=== PATIENT | female | born 1955 | race Caucasian/White ===

== ENCOUNTER → 2017-07-05 | Outpatient (CLI) | payer OTHER ==
[~2017-07-05] MED LIST: ARIP5TAB7 PO; FAMO40TA38; LEVO50TA74; MELO-210 PO; METF500T4 PO; OMEP20CA9 PO; OXYC-281; SERT-165; SUCR1TAB; TRAZ150T65 PO; TUMS EX750 MG; [UNRECOGNIZED DRUG - CODE] PO
== END | disposition home or self-care (01) ==
LOC: EEG 09:34
PROVIDERS: ATTEND Psychiatry & Neurology Neurology
DX: G40.909 Epilepsy, unspecified, not intractable, without status epilepticus (principal)
CPT/HCPCS: 95819

== ENCOUNTER 2018-03-31 15:34 | Inpatient (IN) | END 2018-04-02 17:10 | disposition home or self-care (01) | DRG 872 ==

== ENCOUNTER 2018-07-02 05:59 | Day surgery (SDC) | END 2018-07-02 14:53 | disposition home or self-care (01) ==

== ENCOUNTER 2018-09-29 06:19 | Emergency (ER) | payer OTHER ==
[~2018-09-29] VITALS: Ht 157.5 cm; Wt 67.8 kg
[~2018-09-29 06:19] MED LIST changes: -ARIP5TAB7 PO; +ASPI-716 PO; -FAMO40TA38; +FISH1CAP PO; +GABA-526 PO; +LEVO50TA7; -LEVO50TA74; -MELO-210 PO; +MELO15TA30 PO; -METF500T4 PO; +MULT-130 PO; -OMEP20CA9 PO; -OXYC-281; +RANI300T PO; +RISP1TAB3 PO; -SERT-165; +SERT-165 PO; +SITA25TA3 PO; -SUCR1TAB; +TOPI100C6 PO; +ZOC10 PO
[2018-09-29 06:26] VITALS: Ht 157.5 cm; Wt 67.8 kg
--- NOTE | 2018-09-29 07:44 | ERD ---
ER Documentation Chief Complaint Chief Complaint pelvic pressure radiating to back x2 days HPI Very pleasant 63-year-old female presents to the emergency room at 24-48 hours of suprapubic abdominal discomfort and mild lower back discomfort. She states that she had pain all night that was burning and pressure-like. She states nasra lar symptoms in the past when she had a urinary tract infection. She does describe urinary urgency and frequency. She denies any fevers or chills, no unilateral flank pain. No colicky pain. No vaginal bleeding or discharge. ROS All systems reviewed and are negative except as per history of present illness. Medications Home Meds Active Scripts Cephalexin* (Keflex*) 500 Mg Capsule, 500 MG PO BID for 7 Days, CAP Prov:KYLEIGH PEDRAZA MD 09/29/18 Ibuprofen* (Motrin*) 800 Mg Tab, 800 MG PO Q6H PRN for PAIN AND OR ELEVATED TEMP, #30 TAB Prov:KYLEIGH PEDRAZA MD 09/29/18 Reported Medications Fish Oil/Dha/Epa (FISH OIL 1,200 MG FISH OIL) 1 Each Capsule, 1 EACH PO DAILY, CAP 03/31/18 Multivitamins-Min/Fa/Ginkgo (ONE DAILY FOR WOMEN 50+ ADV TB) 1 Each Tablet, 1 EACH PO DAILY, TAB 03/31/18 Aspirin* (Ecotrin*) 81 Mg Tablet.dr, 81 MG PO DAILY, TAB 03/31/18 Risperidone* (Risperidone*) 1 Mg Tablet, 1 MG PO bedtime, TAB 03/31/18 Gabapentin* (Gabapentin*) 600 Mg Tablet, 1200 MG PO TID, #180 TAB 03/31/18 Simvastatin (Simvastatin) 10 Mg Tablet, 10 MG PO weekly, #30 TAB 03/31/18 Ranitidine Hcl* (Ranitidine Hcl*) 300 Mg Tablet, 300 MG PO HS, #30 TAB 03/31/18 Topiramate* (Trokendi XR*) 100 Mg Cap.er.24h, 100 MG PO Bedtime, CAP 03/31/18 Sitagliptin* (Januvia*) 25 Mg Tablet, 25 MG PO BID, #30 TAB 03/31/18 Calcium Carbonate (Tums Ex) 750 Mg Chew 04/15/12 Sertraline Hcl* (Sertraline Hcl*) 100 Mg Tablet, 100 MG PO AC BREAKFAST 04/15/12 Levothyroxine Sodium* (Levothyroxine Sodium*) 50 Mcg Tablet 04/15/12 Trazodone Hcl* (Desyrel*) 150 Mg Tablet, 150 MG PO DAILY 04/13/12 Meloxicam* (Mobic*) 15 Mg Tablet, 15 MG PO DAILY 04/13/12 Captopril (Capoten) 12.5 Mg Tablet, 12.5 MG PO DAILY 04/13/12 Allergies Allergies: Coded Allergies: No Known Drug Allergies (Verified Allergy, Unknown, 03/31/18) PMhx/Soc History of Surgery: Yes (HYSTERECTOMY) Anesthesia Reaction: No Hx Neurological Disorder: No Hx Respiratory Disorders: No Hx Cardiac Disorders: Yes (HYPERTENSION) Hx Psychiatric Problems: No Hx Miscellaneous Medical Probl: Yes (HYPERLIPIDEMIA) Hx Alcohol Use: No Hx Substance Use: No Hx Tobacco Use: No FmHx Family History: No diabetes Physical Exam Vitals Vital Signs Date Temp Pulse Resp B/P (MAP) Pulse Ox O2 O2 Flow FiO2 Time Delivery Rate 09/29/18 97.1 89 18 173/92 99 06:26 (119) Physical Exam General: Well developed, well nourished, no acute distress Head: Normocephalic, atraumatic. Eyes: Pupils equally reactive, EOM intact ENT: Moist mucous membranes Neck: Supple, no lymphadenopathy Respiratory: Lungs clear bilaterally, no distress Cardiovascular: RRR, no murmurs, rubs, or gallops Abdominal: Soft, very mild suprapubic abdominal tenderness overlying the bladder, negative Mendez sign, no tenderness to McBurney's point, negative Rovsing's. Back: No CVAT bilaterally : Deferred MSK: No edema, no unilateral swelling, 5/5 strength Neurologic: Alert and oriented, moving all extremities, normal speech, no focal weakness, no cerebellar signs Skin: No rash Psych: Normal mood Result Diagram: 09/29/18 0805 09/29/18 0805 Results 24 hrs Laboratory Tests Test 09/29/18 07:47 09/29/18 08:05 Bedside Urine pH (LAB) 7.0 Bedside Urine Protein (LAB) Negative Bedside Urine Glucose (UA) Negative Bedside Urine Ketones (LAB) Negative Bedside Urine Blood Negative Bedside Urine Nitrite (LAB) Negative Bedside Urine Leukocyte Esterase (L Negative White Blood Count 6.9 10^3/ul Red Blood Count 4.97 10^6/ul Hemoglobin 12.1 g/dl Hematocrit 38.7 % Mean Corpuscular Volume 77.9 fl Mean Corpuscular Hemoglobin 24.3 pg Mean Corpuscular Hemoglobin Concent 31.3 g/dl Red Cell Distribution Width 15.9 % Platelet Count 180 10^3/UL Mean Platelet Volume 10.4 fl Immature Granulocytes % 0.400 % Neutrophils % 70.9 % Lymphocytes % 20.8 % Monocytes % 6.3 % Eosinophils % 0.9 % Basophils % 0.7 % Nucleated Red Blood Cells % 0.0 /100WBC Immature Granulocytes # 0.030 10^3/ul Neutrophils # 4.9 10^3/ul Lymphocytes # 1.4 10^3/ul Monocytes # 0.4 10^3/ul Eosinophils # 0.1 10^3/ul Basophils # 0.1 10^3/ul Nucleated Red Blood Cells # 0.0 10^3/ul Sodium Level 142 mmol/L Potassium Level 4.3 mmol/L Chloride Level 110 mmol/L Carbon Dioxide Level 24 mmol/L Anion Gap 8 Blood Urea Nitrogen 14 mg/dl Creatinine 0.57 mg/dl Est Glomerular Filtrat Rate mL/min > 60 mL/min Glucose Level 128 mg/dl Calcium Level 9.3 mg/dl Total Bilirubin 0.1 mg/dl Direct Bilirubin 0.00 mg/dl Indirect Bilirubin 0.1 mg/dl Aspartate Amino Transf (AST/SGOT) 42 IU/L Alanine Aminotransferase (ALT/SGPT) 32 IU/L Alkaline Phosphatase 88 IU/L Total Protein 7.5 g/dl Albumin 4.0 g/dl Globulin 3.50 g/dl Albumin/Globulin Ratio 1.14 Lipase 144 U/L Current Medications Medications Dose Sig/Tesfaye Start Time Status Last (Trade) Ordered Route PRN Stop Time Admin Dose Reason Admin Ibuprofen 800 mg ONCE ONCE 09/29/18 DC 09/29/18 (Motrin) PO 08:00 09/29/18 07:47 08:01 Procedures/MDM CT a/p IMPRESSION: No evidence of urolithiasis, obstructive uropathy, diverticulitis or append icitis. Diverticulosis. Hysterectomy. Enlarged fatty liver. Question of thick-walled stomach. Clinical correlation suggested. Consider endoscopy if clinically indicated. L5-S1 degenerative disc disease with central stenosis. LAB INTERPRETATION: I reviewed the laboratory testing and it shows urine dip that is unremarkable. Laboratory testing reveals no evidence of infection or hepatobiliary obstruction MEDICAL DECISION MAKING: Patient's clinical exam, signs and symptoms are very consistent with uncomplicated acute cystitis. No clinical signs or symptoms concerning for acute pyelonephritis. Very low clinical concern for acute intra-abdominal process such as appendicitis, bowel obstruction, diverticulitis or ovarian or uterine process. The patient has focal tenderness overlying the bladder with signs symptoms consistent with UTI and prior history of UTI. Urine dip would be appropriate. If the urinalysis is unremarkable then further workup including labs and CT may be necessary. Otherwise I would like to avoid unnecessary diagnostic imaging and radiation. ER COURSE: * Urine dip was not consistent with urinary tract infection. CT imaging and laboratory testing was initiated given unclear etiology at this point. * Laboratory testing and CT imaging are unrevealing. At this point unclear etiology as to the patient's symptoms. The patient does have a history of cystitis with similar symptoms. This is the most likely examination. A short trial of Keflex would be reasonable. The patient was advised if symptoms do not improve outpatient follow-up with [facility] and urology for possible cystoscopy would be appropriate. Return precautions were discussed and understood and the patient feels comfortable with discharge. CONSULTATION: None DISPOSITION PLAN: The patient does not have an identifiable emergent medical condition that warrants inpatient hospitalization at this time. The patient is deemed safe for discharge with outpatient follow-up. We discussed follow up with the patient's primary care doctor within 24 to 48 hours as needed. We also discussed return to the emergency room for worsening symptoms or worsening condition. Outpatient referral: [facility] and urology as needed Discharge Medications: Motrin and Keflex Departure Diagnosis: Primary Impression: Suprapubic abdominal pain Additional Impression: Acute cystitis Hematuria presence: without hematuria Qualified Codes: N30.00 - Acute cystitis without hematuria Condition: KYLEIGH Kaye MD Sep 29, 2018 07:44
[2018-09-29] MEDS ORDERED: IBUPROFEN 800 MG TAB PO ONE (08:00)
[2018-09-29] MEDS ORDERED: CEPH-443 PO (08:56)
[2018-09-29] MEDS ORDERED: IBUP800T48 PO (08:56)
[2018-09-29 09:31] VITALS: BP 119/85; PULSE 88; RESP 18
== END 2018-09-29 09:34 | disposition home or self-care (01) ==
LOC: E/R 06:19
DX: N30.00 Acute cystitis without hematuria (principal); I10 Essential (primary) hypertension; Z79.82 Long term (current) use of aspirin; Z79.84 Long term (current) use of oral hypoglycemic drugs
CPT/HCPCS: 74176; 80053; 81003; 83690; 85025; Z7502; Z7610

== ENCOUNTER 2019-01-21 05:41 | Inpatient (IN) | payer OTHER ==
[2019-01-21] VITALS (29 sets, daily range): BP systolic 103–160; BP diastolic 53–86; PULSE 17–88; RESP 10–18; Ht 157.5 cm; Wt 65.2 kg
[~2019-01-21] VITALS: Ht 157.5 cm; Wt 65.2 kg
[~2019-01-21 05:41] MED LIST changes: +CEPH-443 PO; +IBUP800T48 PO
[2019-01-21] MEDS ORDERED: OMEP40CA6 PO (06:58)
[2019-01-21] MEDS ORDERED: TRA100 PO (07:00)
[2019-01-21] MEDS ORDERED: GELATIN SIZE 100 SPONGE ONE (07:04)
[2019-01-21] MEDS ORDERED: THROMBIN (BOVINE) 5,000 UNIT VIAL TP ONE (07:05)
[2019-01-21] MEDS ORDERED: BUPIVACAINE 0.5% (SDV) 30 ML INJ ONE (07:05)
[2019-01-21] MEDS ORDERED: POLYMYXIN/BACITRACIN 1L IRRIG ONE (07:05)
[2019-01-21] MEDS ORDERED: LIDOCAINE 1%/EPI 30 ML INJ ONE (07:05)
--- NOTE | 2019-01-21 07:07 | PREAC ---
Date/Time of Note Date/Time of Note DATE: 01/21/19 TIME: 07:06 Anesthesia Eval and Record Evaluation Time Pre-Procedure Interview DATE: 01/21/19 TIME: 07:06 Age 63 Sex female NPO: 8 hrs Preoperative diagnosis C4-5, C5-6, C6-7 disc degenerative disease Planned procedure C4-5, C5-6, C6-7 anterior cervical discectomy and decompression, C4-7 instrumented fusion with graft Past Medical History Past Medical History: Includes Cardio: HTN, Dyslipidemia Endo: Diabetes, Hypothyroid Surgery & Anesthesia Issues No known issue Meds Anticoagulation: No Beta Allison within 24 hr: No Reason Beta Allison not given: Pt. not on B-Allison Reported Medications Trazodone Hcl* (Trazodone Hcl*) 100 Mg Tablet, 200 MG PO QHS, #30 TAB 01/21/19 Omeprazole* (Omeprazole*) 40 Mg Capsule.dr, 40 MG PO DAILY, #30 CAP 01/21/19 Fish Oil/Dha/Epa (FISH OIL 1,200 MG FISH OIL) 1 Each Capsule, 1 EACH PO DAILY, CAP 03/31/18 Multivitamins-Min/Fa/Ginkgo (ONE DAILY FOR WOMEN 50+ ADV TB) 1 Each Tablet, 1 EACH PO DAILY, TAB 03/31/18 Aspirin* (Ecotrin*) 81 Mg Tablet.dr, 81 MG PO DAILY, TAB 03/31/18 Risperidone* (Risperidone*) 1 Mg Tablet, 1 MG PO bedtime, TAB 03/31/18 Gabapentin* (Gabapentin*) 600 Mg Tablet, 1200 MG PO TID, #180 TAB 03/31/18 Simvastatin (Simvastatin) 10 Mg Tablet, 10 MG PO weekly, #30 TAB 03/31/18 Ranitidine Hcl* (Ranitidine Hcl*) 300 Mg Tablet, 300 MG PO HS, #30 TAB 03/31/18 Topiramate* (Trokendi XR*) 100 Mg Cap.er.24h, 100 MG PO Bedtime, CAP 03/31/18 Sitagliptin* (Januvia*) 25 Mg Tablet, 25 MG PO BID, #30 TAB 03/31/18 Sertraline Hcl* (Sertraline Hcl*) 100 Mg Tablet, 100 MG PO AC BREAKFAST 04/15/12 Levothyroxine Sodium* (Levothyroxine Sodium*) 50 Mcg Tablet 04/15/12 Captopril (Capoten) 12.5 Mg Tablet, 12.5 MG PO DAILY 04/13/12 Discontinued Reported Medications Calcium Carbonate (Tums Ex) 750 Mg Chew 04/15/12 Trazodone Hcl* (Desyrel*) 150 Mg Tablet, 150 MG PO DAILY 04/13/12 Meloxicam* (Mobic*) 15 Mg Tablet, 15 MG PO DAILY 04/13/12 Discontinued Scripts Cephalexin* (Keflex*) 500 Mg Capsule, 500 MG PO BID for 7 Days, CAP Prov:KYLEIGH PEDRAZA MD 09/29/18 Ibuprofen* (Motrin*) 800 Mg Tab, 800 MG PO Q6H PRN for PAIN AND OR ELEVATED TEMP, #30 TAB Prov:KYLEIGH PEDRAZA MD 09/29/18 Meds reviewed: Yes Allergies Coded Allergies: No Known Drug Allergies (Verified Allergy, Unknown, 01/21/19) Allergies Reviewed: Yes Labs/Studies Labs Reviewed: Reviewed by anesthesiologist test: N/A Pre-procedure Exam Airway: Adequate mouth opening Mallampati: Mallampati I Teeth: Abnormal (Partial upper denture, full lower denture) Lung: Normal Heart: Normal ASA Physical Status ASA physical status: 3 Emergency: None Planned Pain Management Parenteral pain med Pre-operative Attestations Prior to commencing anesthesia and surgery, the patient was re-evaluated, there was verification of: *The patient's identity *The results of appropriate recent lab work and preoperative vital signs *The above evaluation not changing prior to induction *Anesthetic plan, risk benefits, alternative and complications discussed with patient/family; questions answered; patient/family understands, accepts and wishes to proceed. NADEEM VILLALTA MD Jan 21, 2019 07:07
[2019-01-21] MEDS ORDERED: ROCURONIUM 50 MG INJ ONE (07:30)
[2019-01-21] MEDS ORDERED: MEPERIDINE 100 MG INJ ONE (07:30)
[2019-01-21] MEDS ORDERED: NEOSTIGMINE 3 MG/3 ML SYRINGE ONE (07:30)
[2019-01-21] MEDS ORDERED: LIDOCAINE 2% (SDV) 5 ML INJ ONE (07:30)
[2019-01-21] MEDS ORDERED: PROPOFOL 20 ML ONE (07:30)
[2019-01-21] MEDS ORDERED: SUCCINYLCHOLINE CHLORIDE 100 MG/5 ML SYG IV ONE (07:30)
[2019-01-21] MEDS ORDERED: GLYCOPYRROLATE 0.4 MG INJ ONE ×2 (07:30→13:04)
[2019-01-21] MEDS ORDERED: SOD CHLORIDE 0.9% 1,000 ML IV SCH (07:30)
[2019-01-21] MEDS ORDERED: SEVOFLURANE 15 MIN ONE (07:50)
--- NOTE | 2019-01-21 07:54 | HPN ---
Date/Time of Note Date/Time of Note DATE: 01/21/19 TIME: 07:52 Interval H&P Admission Note Pt. seen H&P reviewed: Systems changes noted below Patient continues to have intractable axial neck pain with B. UE (Right>Left) pain, numbness, weakness. DIscussed the patient's pathology with family at bedside including patient's son and her sisters. Risks and benefits of surgery explained to patient and family again. They understand and wish to proceed. PHILIP SIBLEY MD Jan 21, 2019 07:54
[2019-01-21] MEDS ORDERED: CEFAZOLIN 1 GM INJ ONE (08:26)
[2019-01-21] MEDS ORDERED: DEXAMETHASONE 4 MG/ML 5 ML INJ ONE (08:26)
[2019-01-21] MEDS ORDERED: DIPHENHYDRAMINE 50 MG INJ IV PRN (13:00)
[2019-01-21] MEDS ORDERED: LABETALOL HCL 20MG INJ IV PRN (13:00)
[2019-01-21] MEDS ORDERED: EPHEDrine 25 MG/5 ML SYG IV PRN (13:00)
[2019-01-21] MEDS ORDERED: FENTAnyl 50 MCG/ML VIAL IV PRN ×2 (13:00)
[2019-01-21] MEDS ORDERED: METOCLOPRAMIDE 10 MG INJ IV PRN (13:00)
[2019-01-21] MEDS ORDERED: ONDANSETRON 4 MG INJ IV PRN ×2 (13:00→13:30)
[2019-01-21] MEDS ORDERED: hydrALAzine 20 MG INJ IV PRN (13:00)
[2019-01-21] MEDS ORDERED: MEPERIDINE 25 MG INJ IV PRN (13:00)
[2019-01-21] MEDS ORDERED: MIDAZOLAM 1 MG/ML 2 ML INJ IV PRN (13:00)
[2019-01-21] MEDS ORDERED: HYDROmorphONE 1 MG/5 ML IV SYRINGE IV PRN ×3 (13:00)
[2019-01-21] MEDS ORDERED: OXYCODONE/ACETAMINOPHEN (5/325) TAB PO PRN ×2 (13:00)
[2019-01-21] MEDS ORDERED: ONDANSETRON 4 MG INJ ONE (13:06)
[2019-01-21] MEDS ORDERED: NON-FORMULARY/PATIENT OWN MED (Omeprazole* 40 MG) PO SCH (13:30)
[2019-01-21] MEDS ORDERED: TOPIRAMATE 100 MG PO SCH (13:30)
[2019-01-21] MEDS ORDERED: LEVOTHYROXINE 50 MCG TAB PO SCH (13:30)
[2019-01-21] MEDS ORDERED: NON-FORMULARY/PATIENT OWN MED (Simvastatin 10 MG) PO SCH (13:30)
[2019-01-21] MEDS ORDERED: BISACODYL 10 MG SUPP PR PRN (13:30)
[2019-01-21] MEDS ORDERED: NALOXONE (0.4 MG/ML) INJ IV PRN (13:30)
[2019-01-21] MEDS: CEFAZOLIN 1 GM/50 ML (PMX) 50 ML IVPB SCH ×2 (14:14→20:49)
--- NOTE | 2019-01-21 14:34 | OPR ---
Date/Time of Note Date/Time of Note DATE: 01/21/19 TIME: 14:33 Operative Report Procedure Date: Jan 21, 2019 Preoperative Diagnosis Please see below. Postoperative Diagnosis Please see below. Operation/Procedure Performed Please see below. Surgeon see signature line Manager Client Service None Anesthesia Type: general Estimated Blood Loss: 10 - 50 ml's (50cc) Transfusion none Specimen None Grafts/Implants Please see below. Tubes/Drains Please see below. Complications none Pt Condition Post Procedure: stable Disposition: PACU Procedure Description Date of operation: 01/21/2019 Preoperative diagnosis: 1. C4-5, C5-6 and C6-7 degenerative disc disease 2. C4-5, C5-6 and C6-7 central and foraminal stenosis Post Operative diagnosis: 1. C4-5, C5-6 and C6-7 degenerative disc disease 2. C4-5, C5-6 and C6-7 central and foraminal stenosis Procedures performed: 1. C4-5, C5-6 and C6-7 anterior cervical discectomy and spinal decompression 2. Placement of intervertebral cages at C4-5, C5-6 and C6-7 levels (Nexxt Spine 3D printed titanium lordotic 7 mm height cages) 3. C4-C7 anterior interbody arthrodesis 4. C4-C7 anterior instrumentation (Ceci Spine static plate with 14 mm variable screws) 5. Local morselized autologous bone graft harvest 6. Morselized allograft placement (demineralized bone matrix allograft putty) 7. Intraoperative fluoroscopy with professional interpretation 8. Intraoperative microscope with microdissection 9. Intraoperative neurophysiologic monitoring including SSEP, MEP and EMG Indication for procedure: This is a 63-year-old right-handed female with chronic history of progressively increasing severe and intractable axial neck pain, rigidity and spasms as well as bilateral upper extremity including hand numbness, weakness and some early signs of cervical myelopathy including decreased dexterity and gait balance. The patient has already undergone conservative management without significant improvement of her symptomatology. She was found to have the above image findings. The patient's pathology was explained in great detail with the patient and her daughter in the clinic setting as well as with the patient again in the rest of her family including her son and the preoperative area in detail. The risks and benefits of the above operation were explained in great detail with the risks including bleeding, infection, weakness, numbness, paralysis, bowel or bladder dysfunction, injury to the surrounding tissues, dysphagia, hoarseness of voice, cerebrospinal fluid leak, failure of improvement of symptoms or worsening of symptoms, need for further surgeries including redo/revision or extension of the decompression and instrumented fusion as well as those risks associated with surgery and general anesthesia including heart attack, stroke, pneumonia, deep venous thrombosis, pulmonary embolism and . The patient and her family fully understood the above discussion and wished to proceed with the above surgery. Description of operative procedure: The patient was brought to the operating room and placed supine on the operating table. After general anesthesia was obtained, a small roll was placed across the patient's shoulders. Her neck was kept in a neutral position. Her arms were then tucked by her side. All pressure points were noted and padded appropriately. Her shoulders were then taped down. The midline anterior cervical region was marked. Then the vertical linear incision was marked from the medial border of the sternocleidomastoid muscle toward midline at the level of the cricoid cartilage. After the skin was prepped and draped under standard sterile fashion, local anesthetics were infiltrated into the marked incision. The skin was then incised down to the level of the platysma muscle. The platysma muscle was then sharply opened and the plane underneath the platysma muscle was dissected free superiorly and inferiorly to further loosen the soft tissue and increase the operative coridor. The plane medial to the right sternocleidomastoid muscle was then further dissected all the way down to the precervical fascia. The C4-5 disc space was then localized and confirmed under direct lateral fluoroscopy. The medial borders of the sternocleidomastoid muscle were undermined. Self-retaining retractors were placed inside. Florence pins were placed at the C4 and C5 vertebral bodies. The patient had severe C4-5, C5-6 and C6-7 degenerative disc disease and disc collapse as seen on the intraoperative fluoroscopy. The operating microscope was brought into the field. The C4-5 disc space was then distracted using the Florence pins. The annulus was then cut open. Then using a combination of Kerrisons and rongeurs and a high-speed drill, complete discectomy was done all the way to the posterior longitudinal ligament. The posterior disc osteophyte complexes were completely removed. The posterior longitudinal ligament was removed. The osteophytes that were removed were leticia vested for later morselized autologous grafting. The dura was exposed. The central canal and bilateral neuroforamina that were stenotic were completely decompressed. The decompression was carried out laterally to the level of the uncovertebral joints bilaterally and the proximal exiting C5 nerve roots were fully exposed. Using the Microsect curettes, any remaining soft tissue u nderneath the C4 and C5 vertebral bodies was also removed fully decompressing the central canal as well as the neuroforamina. The endplates were fully decorticated. Complete hemostasis was obtained. Then the intervertebral cage trials of various sizes were inserted. We finally decided to use the 7 mm height intervertebral cage. The cage was then packed with a combination of the locally harvested morselized autologous bone graft together with demineralized bone matrix allograft putty. The cage was then inserted under direct lateral fluoroscopy and countersunk. This allowed us to achieve excellent disc height mormonism. The C4 Florence pin was removed. The same set of procedures were then done in order to reach the C5-6 and subsequently the C6-7 levels using the same steps as a C4-5 level. The amount of degenerative changes was most severe at the C5-6 level. The amount of central canal stenosis was most severe at the C5-6 level with significant cord compression greater on the left than the right at this level. By the end of the decompression, the spinal cord and the neuroforamina with the exiting C6 and C7 nerve roots were fully decompressed. The dura was completely pulsatile by the end of the procedure. Was an area of thinning of the dura at the C5-6 level but the arachnoid was not showing. Once complete hemostasis was obtained, a small amount of DuraSeal was placed over the dura. After using the various cage trials, we also inserted 7 mm height intervertebral cages at the C5-6 and C6-7 levels direct lateral fluoroscopy and countersunk them. We finally selected the appropriate size anterior cervical plate and vented lordotic to allow mormonism of the patient's cervical lordosis. Starting pump servicer holes were then made into the vertebral bodies from C4 down to C7 and 14 mm variable screws were inserted and fully tightened starting from C4 down to C7 to allow anterior cervical plate screws to lag and bring the vertebral bodies into the plate. The screws were then fully tightened and the locking mechanisms were engaged. A final AP and lateral x-ray was taken showing good positioning of the hardware and good mormonism of the patient's cervical lordosis. Complete hemostasis was obtained. Size 10 flat drain was placed in the pretracheal space and the other end of it was brought out of the skin away from the incision site. The platysmal layer was then reapproximated with int errupted sutures. The dermal layer was reapproximated with interrupted sutures. The skin was reapproximated with Dermabond. The drain was secured at its exit site to the skin with a suture and connected to a KENYON bulb and activated. A sterile dressing was placed on top of the incision site. The patient was then woken up, extubated and transported to the recovery room in stable condition. The patient was awake and alert in the recovery room and moving her upper and lower extremities proximally and distally with good strength and following commands. Estimated blood loss: 50 cc Blood products administered: None Type of anesthesia: General Specimen removed: None Packs/drains: Size 10 flat drain Incision: Right anterior cervical Skin closure: Dermabond Patient's condition: Stable Prognosis: Good Wound classification: PHILIP Murguia MD Jan 21, 2019 14:34
[2019-01-21] MEDS: FENTAnyl 50 MCG/ML VIAL IV PRN ×2 (15:24→15:39)
--- NOTE | 2019-01-21 15:34 | HP ---
Date/Time of Note Date/Time of Note DATE: 01/21/19 TIME: 15:26 Assessment/Plan VTE Prophylaxis SCD applied (from Nsg): Yes Pharmacological prophylaxis: NA/contraindicated Pharm contraindication: surgical contra Lines/Catheters IV Catheter Type (from Nrsg): Peripheral IV Urinary Cath still in place: Yes Reason Cath still needed: other (indicate) Assessment/Plan Hospital Course SUBJECTIVE: Lying in bed, having pain on surgical site. OBJECTIVE: Vital signs-see below PHYSICAL EXAM: Constitutional: Adequately built,not in acute distress. HEENT: Head atraumatic and normocephalic. Eyes: Extraocular muscles intact. Anicteric sclerae. Pupils equal bilaterally, reactive to light. NECK: Surgical site dressing C/B/I. KENYON oozing blood. CHEST: Clear and good breath sounds equally. No wheezing. No rhonchi. HEART: S1, S2. Regular rate and rhythm. ABDOMEN: Soft/non tender with no rebound tenderness. Bowel sounds were present. EXTREMITIES: No cyanosis, clubbing or edema. NEUROLOGIC: Alert and oriented x3. No focal deficit. No sensory deficit. PSYCHOSOCIAL: No signs of depression. INTEGUMENTARY: No open wounds. ASSESSMENT AND PLAN: 63-year-old female with a history of type 2 diabetes, hypertension, neuropathy, anxiety disorders, GERD, hypothyroidism, dyslipidemia, cervical myelopathy who was brought in for neurosurgical intervention for severe degenerative disc disease with foraminal stenosis who failed conservative medical management. Multilevel cervical degenerative disc disease w/stenosis -s/p C4-5, C5-6 and C6-7 anterior cervical discectomy and spinal decompression 01/21/19 -Postop management per neurosurgery. DMII -A1C -Basal/bolus insulin HTN -resume home meds Dyslipidemia -Resume statin Anxiety/sleep disorders -resume home meds Hypothyroidism -resume synthroid DVT prophylaxis: SCDs only. Disposition: As per discussion with neurosurgery, plan is to observe patient overnight and with likely drain removal in AM and DC with outpatient follow-up. Approximately 60-minute was spent on this history and physical. Patient was seen in collaboration with Dr. Palma. Results 24hrs Laboratory Tests Test 01/21/19 06:57 01/21/19 14:21 Bedside Glucose 123 166 HPI/ROS Admit Date/Time Admit Date/Time Jan 21, 2019 at 05:41 Hx of Present Illness 63-year-old female with a history of type 2 diabetes, hypertension, neuropathy, anxiety disorders, GERD, hypothyroidism, dyslipidemia, cervical myelopathy who was brought in for neurosurgical intervention for severe cervical degenerative disc disease with foraminal stenosis who failed conservative medical management. Patient underwent C4-5, C5-6 and C6-7 anterior cervical discectomy and spinal decompression on 01/21/[address] Shaw. Hospitalist consultation was requested postoperatively for co-medical management. Patient was seen in the recovery room. She is awake. Reports pain on surgical site. KENYON draining mild to moderate amount of blood. She denied numbness, t ingling, chest pain, palpitation, shortness of breath, nausea, vomiting, abdominal pain, dizziness, headache, or other constitutional symptoms. Vital signs stable. ROS A 12 point review of system was assessed and is negative other than what is mentioned in HPI PMH/Family/Social Past Medical History See HPI Medications Current Medications Sodium Chloride 1,000 ml @ 0 mls/hr Q0M IV Last administered on 01/21/19at 07:35; Admin Dose 25 MLS/HR; Start 01/21/19 at 07:30 Hydromorphone HCl (Dilaudid) 0.2 mg PACU PRN IV MILD PAIN 1-3; Start 01/21/19 at 13:00; Stop 01/21/19 at 17:00 Hydromorphone HCl (Dilaudid) 0.4 mg PACU PRN IV MOD PAIN 4-6 Last administered on 01/21/19at 14:58; Admin Dose 0.4 MG; Start 01/21/19 at 13:00; Stop 01/21/19 at 17:00 Hydromorphone HCl (Dilaudid) 0.6 mg PACU PRN IV SEVERE PAIN 7-10 Last administered on 01/21/19at 14:14; Admin Dose 0.6 MG; Start 01/21/19 at 13:00; Stop 01/21/19 at 17:00 Fentanyl (Sublimaze) 25 mcg PACU ORDER PRN IV MILD PAIN 1-3; Start 01/21/19 at 13:00; Stop 01/21/19 at 17:00 Fentanyl (Sublimaze) 50 mcg PACU ORDER PRN IV MOD PAIN 4-6; Start 01/21/19 at 13:00; Stop 01/21/19 at 17:00 Fentanyl (Sublimaze) 75 mcg PACU ORDER PRN IV SEVERE PAIN 7-10; Start 01/21/19 at 13:00; Stop 01/21/19 at 17:00 Oxycodone/ Acetaminophen (Percocet (5/ 325)) 1 tab PACU ORDER PRN PO .PAIN 1-5; Start 01/21/19 at 13:00; Stop 01/21/19 at 17:00 Oxycodone/ Acetaminophen (Percocet (5/ 325)) 2 tab PACU ORDER PRN PO .PAIN 6-10; Start 01/21/19 at 13:00; Stop 01/21/19 at 17:00 Ondansetron HCl (Zofran Inj) 4 mg PACU ORDER PRN IV NAUSEA/VOMITING; Start 01/21/19 at 13:00; Stop 01/21/19 at 17:00 Metoclopramide HCl (Reglan) 10 mg PACU ORDER PRN IV NAUSEA/VOMITING; Start 01/21/19 at 13:00; Stop 01/21/19 at 17:00 Labetalol HCl (Labetalol) 5 mg PACU ORDER PRN IV HIGH BLOOD PRESSURE; Start 01/21/19 at 13:00; Stop 01/21/19 at 17:00 Hydralazine HCl (Apresoline) 5 mg PACU ORDER PRN IV HIGH BLOOD PRESSURE; Start 01/21/19 at 13:00; Stop 01/21/19 at 17:00 Ephedrine Sulfate 5 mg PACU ORDER PRN IV BLOOD PRESSURE SUPPORT; Start 01/21/19 at 13:00; Stop 01/21/19 at 17:00 Meperidine HCl (Demerol) 25 mg PACU ORDER PRN IV .RIGORS; Start 01/21/19 at 13:00; Stop 01/21/19 at 17:00 Diphenhydramine HCl (Benadryl) 25 mg PACU ORDER PRN IV .PRURITUS; Start 01/21/19 at 13:00; Stop 01/21/19 at 17:00 Midazolam HCl (Versed) 0.5 mg PACU ORDER PRN IV .ANXIETY; Start 01/21/19 at 13:00; Stop 01/21/19 at 17:00 Captopril (Capoten) 12.5 mg DAILY PO ; Start 01/21/19 at 13:30 Gabapentin (Neurontin) 1,200 mg TID PO ; Start 01/21/19 at 21:00 Levothyroxine Sodium (Synthroid) 25 mcg QAM PO ; Start 01/21/19 at 13:30 Ranitidine HCl (Zantac) 300 mg HS PO ; Start 01/21/19 at 21:00 Sertraline HCl (Zoloft) 100 mg AC BREAKFAST PO ; Start 01/22/19 at 07:00 Trazodone HCl (Desyrel) 200 mg QHS PO ; Start 01/21/19 at 21:00; Status UNV Miscellaneous Information 1 each DAILY PO ; Start 01/21/19 at 13:30; Status UNV Miscellaneous Information 1 each DAILY PO ; Start 01/21/19 at 13:30; Status UNV Miscellaneous Information 40 mg DAILY PO ; Start 01/21/19 at 13:30; Status UNV Miscellaneous Information 10 mg weekly PO ; Start 01/21/19 at 13:30; Status UNV Miscellaneous Information 25 mg BID PO ; Start 01/21/19 at 21:00; Status UNV Miscellaneous Information 100 mg Bedtime PO ; Start 01/21/19 at 13:30; Status UNV Potassium Chloride/Sodium Chloride 1,000 ml @ 100 mls/hr Q10H IV ; Start 01/21/19 at 13:30 Acetaminophen/ Hydrocodone Bitart ([place] (5/325)) 1 tab Q4H PRN PO .PAIN 1-5; Start 01/21/19 at 13:30 Hydromorphone HCl (Dilaudid) 0.2 mg Q1H PRN IV .BREAKTHROUGH PAIN; Start 01/21/19 at 13:30 Cefazolin Sodium 50 ml @ 100 mls/hr Q8H IVPB Last administered on 01/21/19at 14:14; Admin Dose 100 MLS/HR; Start 01/21/19 at 13:30; Stop 01/22/19 at 05:59 Ondansetron HCl (Zofran Inj) 4 mg Q6H PRN IV NAUSEA/VOMITING; Start 01/21/19 at 13:30 Bisacodyl (Dulcolax Supp) 10 mg DAILY PRN [place] .CONSTIPATION; Start 01/21/19 at 13:30 Docusate Sodium (Colace) 100 mg BID PO ; Start 01/21/19 at 21:00 Pantoprazole (Protonix Iv) 40 mg DAILY@06 IV ; Start 01/22/19 at 06:00; Status UNV Cyclobenzaprine HCl (Flexeril) 5 mg TID PRN PO .MUSCLE SPASM; Start 01/21/19 at 13:30 Naloxone HCl (Narcan) 0.2 mg Q2M PRN IV .RR 8 BREATHS/MIN OR LESS; Start 01/21/19 at 13:30 Coded Allergies: No Known Drug Allergies (Verified Allergy, Unknown, 01/21/19) Past Surgical History See HPI Family History Significant Family History: no pertinent family hx Social History Denied history of alcohol, smoking or illicit drug use. Smoking Status: Never smoker Exam/Review of Systems Vital Signs Vitals Vital Signs Date Temp Pulse Resp B/P (MAP) Pulse Ox O2 O2 Flow FiO2 Time Delivery Rate 01/21/19 78 13 129/73 99 Nasal 15:17 (91) Cannula 01/21/19 2.0 14:15 01/21/19 98.6 13:53 CHAVA ROD NP Jan 21, 2019 15:34
--- NOTE | 2019-01-21 15:55 | PAC ---
Date/Time of Note Date/Time of Note DATE: 01/21/19 TIME: 15:55 Post-Anesthesia Notes Post-Anesthesia Note Last documented vital signs Vital Signs Date Temp Pulse Resp B/P (MAP) Pulse Ox O2 O2 Flow FiO2 Time Delivery Rate 01/21/19 78 18 117/73 100 Nasal 15:27 (88) Cannula 01/21/19 2.0 14:15 01/21/19 98.6 13:53 Activity: WNL Respiratory function: WNL Cardiovascular function: WNL Mental status: Baseline Pain reasonably controlled: Yes Hydration appropriate: Yes Nausea/Vomiting absent: Yes Comments BT: 98.3 NADEEM VILLALTA MD Jan 21, 2019 15:55
[2019-01-21] MEDS: 1/2 NS + KCL 20 MEQ 1,000 ML IV SCH (16:30)
[2019-01-21] MEDS: HYDROCODONE/APAP (5/325) TAB PO PRN ×2 (16:50→20:59)
[2019-01-21] MEDS ORDERED: GLUCOSE GEL 15 GRAM TUBE PO PRN ×2 (17:00)
[2019-01-21] MEDS ORDERED: GLUCAGON 1 MG INJ IM PRN (17:00)
[2019-01-21] MEDS ORDERED: DEXTROSE 50% 50 ML SYRINGE IV PRN ×2 (17:00)
[2019-01-21] MEDS ORDERED: GLUCOSE GEL 15 GRAM TUBE BUCCAL PRN (17:00)
[2019-01-21] MEDS: INSULIN ASPART [NOVOLOG] 3 ML PEN SC SCH ×2 (17:55→20:54)
[2019-01-21] MEDS: CYCLOBENZAPRINE 10 MG TAB PO PRN (18:43)
[2019-01-21] MEDS: HYDROmorphONE 0.5 MG/0.5 ML SYG IV PRN (19:30)
[2019-01-21] MEDS: DOCUSATE SODIUM 100 MG CAP PO SCH (20:46)
[2019-01-21] MEDS: traZODone 100 MG TAB PO SCH (20:47)
[2019-01-21] MEDS: GABAPENTIN 400 MG CAP PO SCH (20:48)
[2019-01-21] MEDS: RANITIDINE 150 MG TAB PO SCH (20:48)
[2019-01-21] MEDS: INSULIN GLARGINE [LANTus] (100 UNITS/ML) SYG SC SCH (20:54)
[2019-01-21] MEDS ORDERED: NON-FORMULARY/PATIENT OWN MED (Sitagliptin* (Januvia*) 25 MG) PO SCH (21:00)
[2019-01-22] MEDS: HYDROmorphONE 0.5 MG/0.5 ML SYG IV PRN ×4 (00:25→18:40)
[2019-01-22 00:26] VITALS: BP 150/70; PULSE 74; RESP 18
[2019-01-22] MEDS: ACCU-CHEK XX SCH (01:30)
[2019-01-22] MEDS: 1/2 NS + KCL 20 MEQ 1,000 ML IV SCH ×2 (03:11→13:46)
[2019-01-22] MEDS: CEFAZOLIN 1 GM/50 ML (PMX) 50 ML IVPB SCH (04:31)
[2019-01-22] MEDS: HYDROCODONE/APAP (5/325) TAB PO PRN ×4 (04:31→22:41)
[2019-01-22] MEDS ORDERED: PANTOPRAZOLE 40 MG INJ IV SCH (06:00)
[2019-01-22 07:34] VITALS: BP 159/67; PULSE 70; RESP 15
[2019-01-22] MEDS: SERTRALINE 100 MG TAB PO SCH (07:49)
[2019-01-22] MEDS: INSULIN ASPART [NOVOLOG] 3 ML PEN SC SCH ×4 (07:50→21:00)
[2019-01-22] MEDS: FISH OIL 1,000 MG CAP PO SCH (08:45)
[2019-01-22] MEDS: MULTIVITAMINS/MINERALS TAB PO SCH (08:45)
[2019-01-22] MEDS: PANTOPRAZOLE (EC) 40 MG TAB PO SCH (08:45)
[2019-01-22] MEDS: GABAPENTIN 400 MG CAP PO SCH ×3 (08:45→21:14)
[2019-01-22] MEDS: LEVOTHYROXINE 25 MCG TAB PO SCH (08:46)
[2019-01-22] MEDS: DOCUSATE SODIUM 100 MG CAP PO SCH ×2 (08:46→21:14)
--- NOTE | 2019-01-22 09:25 | PN ---
Date/Time of Note Date/Time of Note DATE: 01/22/19 TIME: 09:23 Assessment/Plan VTE Prophylaxis Risk score (from Nsg)>0 risk: 4 SCD applied (from Nsg): Yes Pharmacological prophylaxis: NA/contraindicated Pharm contraindication: surgical contra Lines/Catheters IV Catheter Type (from Nrsg): Saline Lock Urinary Cath still in place: Yes Reason Cath still needed: other (indicate) Assessment/Plan Hospital Course SUBJECTIVE: Complains of headache. Complains of neck stiffness. OBJECTIVE: Physical Exam General: Adequately build 63 year-old female lying in bed in no apparent distress. HEENT: Normocephalic, atraumatic. Eyes: Anicteric sclerae, conjunctivae clear. ENT: Nasal septum midline, oral mucosa moist. Neck: Anterior neck dressing with a KENYON drain in place that is draining serosanguineous secretions. Respiratory: Bilaterally clear breath sounds. No use of accessory muscles of respiration. No adventitious breath sounds. Cardiovascular: S1, S2 heard. Regular rate and rhythm. Abdomen: Soft, nontender, and nondistended. Bowel sounds positive in all 4 quadrants. Genitourinary: Deferred. Extremities: No cyanosis, no clubbing, no edema. Peripheral pulses palpable. Neurologic: Cranial nerves II through XII grossly intact. Equal grasp in bilateral upper extremities. Skin: Normal skin turgor. No skin rashes. Labs & Vitals per chart ASSESSMENT & PLAN 63-year-old female with comorbidities including diabetes mellitus type 2, hypertension, anxiety disorder, dyslipidemia, GERD, hypothyroidism, and cervical myelopathy who was brought in for neurosurgical intervention for severe degenerative disc disease with foraminal stenosis and failed conservative treatment. 1. Multilevel cervical degenerative disc disease with stenosis. Status post C4-5, C5-6 and C6-7 anterior cervical discectomy and spinal decompression 01/21/19 Postop management per neurosurgery. Physical therapy evaluation. 2. Diabetes mellitus type 2. Hemoglobin A1c 5.7. Continue sliding scale insulin along with basal insulin. 3. Hypertension. Continue HAROON inhibitors. 4. Hypothyroidism. Continue Synthroid. 5. GERD. Continue H2 receptor blockers and PPI. 6. Anxiety disorder. Continue mood stabilizers. 7. Dyslipidemia. Continue fish oil. 8. Fluids, electrolytes, and nutrition. Carbohydrate controlled diet. 9. DVT prophylaxis. Bilateral SCDs. 10. Plan. Continue pain control. Physical therapy evaluation. Discharge the patient home once cleared by neurosurgery. The patient was seen in collaboration with Dr. Palma. Result Diagram: 01/22/19 0430 01/22/19 0429 Results 24hrs Laboratory Tests Test 01/21/19 14:21 01/21/19 17:38 01/21/19 20:44 01/22/19 04:29 Bedside Glucose 166 170 136 Sodium Level 145 H Potassium Level 4.1 Chloride Level 110 Carbon Dioxide 25 Level Anion Gap 10 Blood Urea 14 Nitrogen Creatinine 0.68 Est Glomerular > 60 Filtrat Rate mL/min Glucose Level 106 Calcium Level 8.8 Test 01/22/19 04:30 01/22/19 07:15 01/22/19 08:42 White Blood Count 8.7 # Red Blood Count 4.92 Hemoglobin 11.9 L Hematocrit 38.0 Mean Corpuscular 77.2 L Volume Mean Corpuscular 24.2 L Hemoglobin Mean Corpuscular 31.3 L Hemoglobin Concent Red Cell 15.2 H Distribution Width Platelet Count 198 Mean Platelet 11.3 H Volume Immature 0.500 H Granulocytes % Neutrophils % 70.0 Lymphocytes % 20.4 Monocytes % 8.8 Eosinophils % 0.0 Basophils % 0.3 Nucleated Red 0.0 Blood Cells % Immature 0.040 H Granulocytes # Neutrophils # 6.1 Lymphocytes # 1.8 Monocytes # 0.8 Eosinophils # 0.0 Basophils # 0.0 Nucleated Red 0.0 Blood Cells # Hemoglobin A1c 5.7 Lab Scanned Report REFERENCE LAB Bedside Glucose 98 Exam/Review of Systems Exam Vitals Vital Signs Date Temp Pulse Resp B/P (MAP) Pulse Ox O2 O2 Flow FiO2 Time Delivery Rate 01/22/19 97.8 70 15 159/67 98 Room Air 07:34 (97) 01/21/19 2.0 14:15 Intake and Output 01/21/19 01/21/19 01/22/19 1515:00 23:00 07:00 IntakeIntake Total 2550 ml 250 ml 1550 ml OutputOutput Total 2258 ml 220 ml 1305 ml BalanceBalance 292 ml 30 ml 245 ml Results Results 24hrs Laboratory Tests Test 01/21/19 14:21 01/21/19 17:38 01/21/19 20:44 01/22/19 04:29 Bedside Glucose 166 170 136 Sodium Level 145 H Potassium Level 4.1 Chloride Level 110 Carbon Dioxide 25 Level Anion Gap 10 Blood Urea 14 Nitrogen Creatinine 0.68 Est Glomerular > 60 Filtrat Rate mL/min Glucose Level 106 Calcium Level 8.8 Test 01/22/19 04:30 01/22/19 07:15 01/22/19 08:42 White Blood Count 8.7 # Red Blood Count 4.92 Hemoglobin 11.9 L Hematocrit 38.0 Mean Corpuscular 77.2 L Volume Mean Corpuscular 24.2 L Hemoglobin Mean Corpuscular 31.3 L Hemoglobin Concent Red Cell 15.2 H Distribution Width Platelet Count 198 Mean Platelet 11.3 H Volume Immature 0.500 H Granulocytes % Neutrophils % 70.0 Lymphocytes % 20.4 Monocytes % 8.8 Eosinophils % 0.0 Basophils % 0.3 Nucleated Red 0.0 Blood Cells % Immature 0.040 H Granulocytes # Neutrophils # 6.1 Lymphocytes # 1.8 Monocytes # 0.8 Eosinophils # 0.0 Basophils # 0.0 Nucleated Red 0.0 Blood Cells # Hemoglobin A1c 5.7 Lab Scanned Report REFERENCE LAB Bedside Glucose 98 Medications Medication Current Medications Sodium Chloride 1,000 ml @ 0 mls/hr Q0M IV Last administered on 01/21/19 07:35; Admin Dose 25 MLS/HR; Start 01/21/19 at 07:30 Captopril (Capoten) 12.5 mg DAILY PO Last administered on 01/22/19 08:46; Admin Dose 12.5 MG; Start 01/21/19 at 13:30 Gabapentin (Neurontin) 1,200 mg TID PO Last administered on 01/22/19 08:45; Admin Dose 1,200 MG; Start 01/21/19 at 21:00 Ranitidine HCl (Zantac) 300 mg HS PO Last administered on 01/21/19 20:48; Admin Dose 300 MG; Start 01/21/19 at 21:00 Sertraline HCl (Zoloft) 100 mg AC BREAKFAST PO Last administered on 01/22/19 07:49; Admin Dose 100 MG; Start 01/22/19 at 07:00 Trazodone HCl (Desyrel) 200 mg QHS PO Last administered on 01/21/19 20:47; Admin Dose 200 MG; Start 01/21/19 at 21:00 Fish Oil (Fish Oil) 1,000 mg DAILY PO Last administered on 01/22/19 08:45; Admin Dose 1,000 MG; Start 01/22/19 at 09:00 Multivitamins/ Minerals (Theragran-M) 1 tab DAILY PO Last administered on 01/22/19 08:45; Admin Dose 1 TAB; Start 01/22/19 at 09:00 Miscellaneous Information 10 mg weekly PO ; Start 01/21/19 at 13:30; Status UNV Miscellaneous Information 100 mg Bedtime PO ; Start 01/21/19 at 13:30; Status UNV Potassium Chloride/Sodium Chloride 1,000 ml @ 100 mls/hr Q10H IV Last administered on 01/22/19 03:11; Admin Dose 100 MLS/HR; Start 01/21/19 at 13:30 Acetaminophen/ Hydrocodone Bitart ([place] (5/325)) 1 tab Q4H PRN PO .PAIN 1-5 Last administered on 01/22/19 08:53; Admin Dose 1 TAB; Start 01/21/19 at 13:30 Hydromorphone HCl (Dilaudid) 0.2 mg Q1H PRN IV .BREAKTHROUGH PAIN Last administered on 01/22/19 07:49; Admin Dose 0.2 MG; Start 01/21/19 at 13:30 Ondansetron HCl (Zofran Inj) 4 mg Q6H PRN IV NAUSEA/VOMITING; Start 01/21/19 at 13:30 Bisacodyl (Dulcolax Supp) 10 mg DAILY PRN [place] .CONSTIPATION; Start 01/21/19 at 13:30 Docusate Sodium (Colace) 100 mg BID PO Last administered on 01/22/19 08:46; Admin Dose 100 MG; Start 01/21/19 at 21:00 Cyclobenzaprine HCl (Flexeril) 5 mg TID PRN PO .MUSCLE SPASM Last administered on 01/21/19 18:43; Admin Dose 5 MG; Start 01/21/19 at 13:30 Naloxone HCl (Narcan) 0.2 mg Q2M PRN IV .RR 8 BREATHS/MIN OR LESS; Start 01/21/19 at 13:30 Diagnostic Test (Pha) (Accu-Chek) 1 ea 02 XX ; Start 01/22/19 at 02:00 Insulin Glargine (Lantus) 10 units DAILY@2000 SC Last administered on 01/21/19at 20:54; Admin Dose 10 UNITS; Start 01/21/19 at 20:00 Insulin Aspart (Novolog Insulin Pen) NOVOLOG *MILD* ALGORITHM WITH MEALS BEDTIME SC ; Start 01/21/19 at 17:55 Miscellaneous Information 1 ea NOTE XX ; Start 01/21/19 at 17:00 Glucose (Glutose) 15 gm Q15M PRN PO DECREASED GLUCOSE; Start 01/21/19 at 17:00 Glucose (Glutose) 22.5 gm Q15M PRN PO DECREASED GLUCOSE; Start 01/21/19 at 17:00 Dextrose (D50w Syringe) 25 ml Q15M PRN IV DECREASED GLUCOSE; Start 01/21/19 at 17:00 Dextrose (D50w Syringe) 50 ml Q15M PRN IV DECREASED GLUCOSE; Start 01/21/19 at 17:00 Glucagon (Glucagen) 1 mg Q15M PRN IM DECREASED GLUCOSE; Start 01/21/19 at 17:00 Glucose (Glutose) 15 gm Q15M PRN BUCCAL DECREASED GLUCOSE; Start 01/21/19 at 17:00 Levothyroxine Sodium (Synthroid) 25 mcg QAM PO Last administered on 01/22/19at 08:46; Admin Dose 25 MCG; Start 01/22/19 at 09:00 Pantoprazole (Protonix Tab) 40 mg DAILY@06 PO Last administered on 01/22/19at 08:45; Admin Dose 40 MG; Start 01/22/19 at 08:00 ABEBE HILL NP Jan 22, 2019 09:25
[2019-01-22 14:19] VITALS: BP 124/58; PULSE 92; RESP 14
[2019-01-22 19:20] VITALS: BP 139/65; PULSE 95; RESP 18
--- NOTE | 2019-01-22 19:58 | PN ---
Date/Time of Note Date/Time of Note DATE: 01/22/19 TIME: 19:58 PHILIP SIBLEY MD Jan 22, 2019 19:58
--- NOTE | 2019-01-22 20:12 | PDOCDIS ---
Discharge Instructions CONDITION [id number] Patient Condition: [id number] Good HOME CARE INSTRUCTIONS: [id number] Diet Instructions: [id number] Regular [id number] Your diet recommendation is: [id number] Advance to reular diet. May use soft/pureed diet as needed. ACTIVITY: [id number] Activity Restrictions: [id number] Slowly Increase Activity Rest between Activity Avoid heavy lifting Do not operate Machinery [id number] Bathing Restrictions: [id number] Keep cervical incision clean dry intact [id number] Activity Restrictions [id number] No lifting >15lbs above Comment: shoulders OTHER ORDERS: Other Orders: Follow up with Dr. Sibley's clinic in 2-3 weeks. May remove cervical dressing on Sunday. Rx for Tylenol #3 and Flexeril will be sent to patient's pharmacy. PHILIP SIBLEY MD Jan 22, 2019 20:12
[2019-01-22] MEDS ORDERED: CYCL10TA7 PO (20:16)
[2019-01-22] MEDS: traZODone 100 MG TAB PO SCH (21:00)
[2019-01-22] MEDS: RANITIDINE 150 MG TAB PO SCH (21:14)
[2019-01-22] MEDS: INSULIN GLARGINE [LANTus] (100 UNITS/ML) SYG SC SCH (21:20)
[2019-01-22] MEDS: [UNRECOGNIZED DRUG - REMARK] XX SCH (23:30)
[2019-01-22] MEDS: [UNRECOGNIZED DRUG - OTHER] XX SCH (23:30)
[2019-01-23] MEDS: HYDROmorphONE 0.5 MG/0.5 ML SYG IV PRN ×2 (01:10→04:48)
[2019-01-23] MEDS: ACCU-CHEK XX SCH (02:00)
[2019-01-23 04:00] VITALS: BP 153/85; PULSE 103; RESP 18
[2019-01-23] MEDS ORDERED: PANTOPRAZOLE (EC) 40 MG TAB PO SCH (06:00)
[2019-01-23] MEDS: PANTOPRAZOLE (EC) 40 MG TAB PO SCH (06:35)
[2019-01-23] MEDS: SERTRALINE 100 MG TAB PO SCH ×2 (06:37→08:17)
[2019-01-23 07:26] VITALS: BP 169/99; PULSE 105; RESP 18
[2019-01-23] MEDS: [UNRECOGNIZED DRUG - OTHER] XX SCH (07:30)
[2019-01-23] MEDS: [UNRECOGNIZED DRUG - REMARK] XX SCH (07:30)
[2019-01-23] MEDS: HYDROCODONE/APAP (5/325) TAB PO PRN (07:58)
[2019-01-23] MEDS: GABAPENTIN 400 MG CAP PO SCH (07:58)
[2019-01-23] MEDS: LEVOTHYROXINE 25 MCG TAB PO SCH (07:59)
[2019-01-23] MEDS: CYCLOBENZAPRINE 10 MG TAB PO PRN (07:59)
[2019-01-23] MEDS: DOCUSATE SODIUM 100 MG CAP PO SCH (07:59)
[2019-01-23] MEDS: FISH OIL 1,000 MG CAP PO SCH (07:59)
[2019-01-23] MEDS: INSULIN ASPART [NOVOLOG] 3 ML PEN SC SCH (09:00)
[2019-01-23] MEDS: MULTIVITAMINS/MINERALS TAB PO SCH (09:02)
--- NOTE | 2019-01-23 09:53 | DS ---
Date/Time of Note Date/Time of Note DATE: 01/23/19 TIME: 09:49 Discharge Summary Admission/Discharge Info Admit Date/Time Jan 21, 2019 at 05:41 Discharge Date/Time Discharge Diagnosis 1. Multilevel cervical degenerative disc disease with stenosis. Status post C4- 5, C5-6 and C6-7 anterior cervical discectomy and spinal decompression 01/21/19 2. Diabetes mellitus type 2. Hemoglobin A1c 5.7. 3. Hypertension. 4. Hypothyroidism. 5. GERD. 6. Anxiety disorder. 7. Dyslipidemia. Patient Condition: Stable Consults 1. Jean Carlos Shaw MD, Neurosurgery. Procedures Procedure Description Date of operation: 01/21/2019 Preoperative diagnosis: 1. C4-5, C5-6 and C6-7 degenerative disc disease 2. C4-5, C5-6 and C6-7 central and foraminal stenosis Post Operative diagnosis: 1. C4-5, C5-6 and C6-7 degenerative disc disease 2. C4-5, C5-6 and C6-7 central and foraminal stenosis Procedures performed: 1. C4-5, C5-6 and C6-7 anterior cervical discectomy and spinal decompression 2. Placement of intervertebral cages at C4-5, C5-6 and C6-7 levels (Nexxt Spine 3D printed titanium lordotic 7 mm height cages) 3. C4-C7 anterior interbody arthrodesis 4. C4-C7 anterior instrumentation (Ceci Spine static plate with 14 mm variable screws) 5. Local morselized autologous bone graft harvest 6. Morselized allograft placement (demineralized bone matrix allograft putty) 7. Intraoperative fluoroscopy with professional interpretation 8. Intraoperative microscope with microdissection 9. Intraoperative neurophysiologic monitoring including SSEP, MEP and EMG Hx of Present Illness This is a 63-year-old female with comorbidities including diabetes mellitus type 2, hypertension, anxiety disorder, dyslipidemia, GERD, hypothyroidism, and cervical myelopathy who was brought in for neurosurgical intervention for severe degenerative disc disease with foraminal stenosis and failed conservative treatment. Hospital Course The patient had a C4-5, C5-6 and C6-7 anterior cervical discectomy and spinal decompression 01/21/19. The patient was provided with pain medications as per neurosurgery recommendations. Dressing changes and drain removal was done as per neurosurgery. Physical therapy evaluation was done. The patient was started on an appropriate diet. The patient had a fairly stable postoperative course. The patient was cleared by neurosurgery to be discharged home. The patient's chronic problems include diabetes mellitus type 2. The patient was maintained on sliding scale insulin along with basal insulin. The patient's hemoglobin A1c was found to be 5.7. She has underlying hypertension. She was maintained on HAROON inhibitors. She was maintained on Synthroid for her underlying hypothyroidism. She has a history of GERD. She was maintained on antihistamines and proton pump inhibitors. The patient has underlying history of anxiety. The patient was maintained on mood stabilizers. She has underlying dyslipidemia. The patient was maintained on antilipemics. The patient had a stable hospital course. The patient's surgical drain was removed on 01/22/2019. The patient will follow-up with the surgeon as outpatient. At this time I would like to thank Dr. Shaw for allowing us to participate in this patient's care. The patient was seen in collaboration with Dr. Palma. Home Meds Active Scripts Cyclobenzaprine Hcl* (Cyclobenzaprine Hcl*) 10 Mg Tablet, 5 MG PO TID PRN for .MUSCLE SPASM for 14 Days, TAB Prov:JEAN CARLOS SHAW MD 01/22/19 Reported Medications Trazodone Hcl* (Trazodone Hcl*) 100 Mg Tablet, 200 MG PO QHS, #30 TAB 01/21/19 Omeprazole* (Omeprazole*) 40 Mg Capsule.dr, 40 MG PO DAILY, #30 CAP 01/21/19 Fish Oil/Dha/Epa (FISH OIL 1,200 MG FISH OIL) 1 Each Capsule, 1 EACH PO DAILY, CAP 03/31/18 Multivitamins-Min/Fa/Ginkgo (ONE DAILY FOR WOMEN 50+ ADV TB) 1 Each Tablet, 1 EACH PO DAILY, TAB 03/31/18 Risperidone* (Risperidone*) 1 Mg Tablet, 1 MG PO bedtime, TAB 03/31/18 Gabapentin* (Gabapentin*) 600 Mg Tablet, 1200 MG PO TID, #180 TAB 03/31/18 Simvastatin (Simvastatin) 10 Mg Tablet, 10 MG PO weekly, #30 TAB 03/31/18 Ranitidine Hcl* (Ranitidine Hcl*) 300 Mg Tablet, 300 MG PO HS, #30 TAB 03/31/18 Topiramate* (Trokendi XR*) 100 Mg Cap.er.24h, 100 MG PO Bedtime, CAP 03/31/18 Sitagliptin* (Januvia*) 25 Mg Tablet, 25 MG PO BID, #30 TAB 03/31/18 Sertraline Hcl* (Sertraline Hcl*) 100 Mg Tablet, 100 MG PO AC BREAKFAST 04/15/12 Levothyroxine Sodium* (Levothyroxine Sodium*) 50 Mcg Tablet 04/15/12 Captopril (Capoten) 12.5 Mg Tablet, 12.5 MG PO DAILY 04/13/12 Discontinued Reported Medications Aspirin* (Ecotrin*) 81 Mg Tablet.dr, 81 MG PO DAILY, TAB 03/31/18 Calcium Carbonate (Tums Ex) 750 Mg Chew 04/15/12 Trazodone Hcl* (Desyrel*) 150 Mg Tablet, 150 MG PO DAILY 04/13/12 Meloxicam* (Mobic*) 15 Mg Tablet, 15 MG PO DAILY 04/13/12 Discontinued Scripts Cephalexin* (Keflex*) 500 Mg Capsule, 500 MG PO BID for 7 Days, CAP Prov:KYLEIGH PEDRAZA MD 09/29/18 Ibuprofen* (Motrin*) 800 Mg Tab, 800 MG PO Q6H PRN for PAIN AND OR ELEVATED TEMP, #30 TAB Prov:KYLEIGH PEDRAZA MD 09/29/18 Follow-up Plan Patient to follow-up with Dr. Shaw's office in 2 to 3 weeks. Primary Care Provider Not On Staff Doctor Time spent on discharge: > 30 minutes Pending Labs Laboratory Tests Test 01/22/19 13:19 01/22/19 17:37 01/22/19 21:13 01/22/19 21:42 Bedside 109 147 209 170 Glucose mg/dL (70-220) mg/dL (70-220) mg/dL (70-220) mg/dL (70-220) Test 01/23/19 04:44 01/23/19 08:35 White Blood 10.9 Count 10^3/ul (4.8-10 .8) Red Blood 5.20 Count 10^6/ul (4.20-5 .40) Hemoglobin 12.5 g/dl (12.0-16.0 ) Hematocrit 40.8 % (37.0-47.0) Mean 78.5 Corpuscular fl (82.0-101.0) Volume Mean 24.0 Corpuscular pg (29.0-33.0) Hemoglobin Mean 30.6 Corpuscular g/dl (32.0-37.0 Hemoglobin Conc ) ent Red Cell 15.2 Distribution % (11.5-14.5) Width Platelet Count 214 10^3/UL (140-41 5) Mean Platelet 11.6 Volume fl (7.4-10.4) Immature 0.400 Granulocytes % % (0.001-0.429) Neutrophils % 66.3 % (39.0-77.0) Lymphocytes % 25.7 % (15.0-51.0) Monocytes % 6.6 % (0.0-11.0) Eosinophils % 0.4 % (0.0-7.0) Basophils % 0.6 % (0.0-2.0) Nucleated Red 0.0 Blood Cells % /100WBC (0.0-0. 0) Immature 0.040 Granulocytes # 10^3/ul (0.0-0. 031) Neutrophils # 7.2 10^3/ul (1.6-7. 5) Lymphocytes # 2.8 10^3/ul (0.8-2. 9) Monocytes # 0.7 10^3/ul (0.3-0. 9) Eosinophils # 0.0 10^3/ul (0.0-0. 5) Basophils # 0.1 10^3/ul (0.0-0. 1) Nucleated Red 0.0 Blood Cells # 10^3/ul (0.0-0. 0) Sodium Level 142 mmol/L (135-144 ) Potassium 4.2 Level mmol/L (3.5-5.1 ) Chloride Level 106 mmol/L (97-110) Carbon Dioxide 25 Level mmol/L (21-31) Anion Gap 11 (5-13) Blood Urea 13 mg/dl (7-20) Nitrogen Creatinine 0.67 mg/dl (0.44-1.0 0) Est Glomerular > 60 Filtrat mL/min (>60) Rate mL/min Glucose Level 169 mg/dl (70-220) Calcium Level 8.8 mg/dl (8.4-10.2 ) Phosphorus 2.3 Level mg/dl (2.5-4.9) Magnesium 1.9 Level mg/dl (1.7-2.5) Triglycerides 201 Level mg/dl (0-149) Cholesterol 184 Level mg/dl (100-200) LDL 98 mg/dl Cholesterol, Calculated HDL 46 Cholesterol mg/dl (35-98) Cholesterol/HDL 4.0 RATIO Ratio Bedside 224 Glucose mg/dL (70-220) ABEBE HILL NP Jan 23, 2019 09:53
== END 2019-01-23 10:35 | disposition home or self-care (01) | DRG 473 ==
LOC: REC 05:41 → EDSTATUS 07:30 → MS1 16:10
PROVIDERS: ADMIT Neurological Surgery; ATTEND Neurological Surgery
PROC: 0RT30ZZ Resection of Cervical Vertebral Disc, Open Approach (ICD-10-PCS; 2019-01-21)
PROC: 4A11X4G Monitoring of Peripheral Nervous Electrical Activity, Intraoperative, External Approach (ICD-10-PCS; 2019-01-21)
PROC: 0RG20A0 Fusion of 2 or more Cervical Vertebral Joints with Interbody Fusion Device, Anterior Approach, Anterior Column, Open Approach (ICD-10-PCS; principal; 2019-01-21 07:30)
DX: M50.01 Cervical disc disorder with myelopathy, high cervical region (principal); M48.02 Spinal stenosis, cervical region; E11.9 Type 2 diabetes mellitus without complications; E78.5 Hyperlipidemia, unspecified; E03.9 Hypothyroidism, unspecified; F41.9 Anxiety disorder, unspecified; G47.9 Sleep disorder, unspecified; I10 Essential (primary) hypertension; K21.9 Gastro-esophageal reflux disease without esophagitis; Z79.84 Long term (current) use of oral hypoglycemic drugs
CPT/HCPCS: 72050; 80048; 80061; 82962; 83036; 83735; 84100; 85025; 86850; 86900; 86901; 87086; 97116; 97161; J0690; J1100; J1170; J1815; J2175; J2405; J2710; J3010; J3480